=== PATIENT | male | born 1955 | race Asian ===

== ENCOUNTER 2016-11-02 11:31 | Inpatient (IN) | payer OTHER ==
[2016-11-02] VITALS (14 sets, daily range): BP systolic 138–197; BP diastolic 84–96; TEMP 97.8–98.9; Ht 167.6 cm; Wt 65.8 kg
[~2016-11-02] VITALS: Ht 167.6 cm; Wt 65.8 kg
[~2016-11-02 11:31] MED LIST: AMLO10TA PO; ARICEPT ODT10 MG PO; CALC667T2 PO; CARV25TA PO; CARV3.12 PO; CLONIDINE0.1 MG PO; CLOP75TA2 PO; DIVA250T PO; DIVA250T2 PO; FURO20TA67 PO; FURO40TA93 PO; GLYB5TAB65 PO; LEXAPRO20 MG PO; LORTAB1 TAB PO; SENSIPAR30 MG PO; VITAMIN D50000 UNT PO
[2016-11-02 17:53] LABS: PLATELET COUNT 175 K/uL (142-355)
[2016-11-02 18:13] LABS: POTASSIUM 3.5 mmol/L (3.6-5.2)
[2016-11-03] VITALS (10 sets, daily range): BP systolic 79–160; BP diastolic 64–99; TEMP 97.9–98.9
[2016-11-03 06:21] LABS: PLATELET COUNT 184 K/uL (142-355)
[2016-11-03 06:26] LABS: POTASSIUM 3.9 mmol/L (3.6-5.2)
[2016-11-04] VITALS: BP 147/88; TEMP 98.5
[2016-11-04 04:00] VITALS: BP 149/91; TEMP 98.8
[2016-11-04 05:16] LABS: PLATELET COUNT 167 K/uL (142-355)
[2016-11-04 05:25] LABS: POTASSIUM 3.6 mmol/L (3.6-5.2)
[2016-11-04 07:57] VITALS: BP 162/93; TEMP 98.6
== END 2016-11-04 13:00 | disposition home or self-care (01) | DRG 381 ==
LOC: OR 11:31 → ICU 15:02 → MED/SURG 11-03 14:45
PROVIDERS: Family Medicine; ADMIT Emergency Medicine
PROC: 0DB68ZX Excision of Stomach, Via Natural or Artificial Opening Endoscopic, Diagnostic (ICD-10-PCS; principal; 2016-11-02)
PROC: 0D758ZZ Dilation of Esophagus, Via Natural or Artificial Opening Endoscopic (ICD-10-PCS; 2016-11-02)
PROC: 5A1D00Z (ICD-10-PCS; 2016-11-03)
DX: K22.10 Ulcer of esophagus without bleeding (principal); I12.0 Hypertensive chronic kidney disease with stage 5 chronic kidney disease or end stage renal disease; N18.5 Chronic kidney disease, stage 5; I97.121 Postprocedural cardiac arrest following other surgery; K29.60 Other gastritis without bleeding; K22.2 Esophageal obstruction; K22.4 Dyskinesia of esophagus; R13.12 Dysphagia, oropharyngeal phase; E11.9 Type 2 diabetes mellitus without complications; I69.398 Other sequelae of cerebral infarction; I95.89 Other hypotension; D64.89 Other specified anemias; Y84.8 Other medical procedures as the cause of abnormal reaction of the patient, or of later complication, without mention of misadventure at the time of the procedure; Y92.238 Other place in hospital as the place of occurrence of the external cause
CPT/HCPCS: 36415; 80053; 82550; 83735; 83880; 84100; 84484; 85027; 93005; 93306; 94760; J1644; J2250; J2310; J2704; J3010; J3490

== ENCOUNTER 2016-11-12 13:49 | Outpatient (CLI) | payer OTHER | END 2016-11-12 14:50 | disposition home or self-care (01) | LOC: LABW 13:49 | DX: D64.89 Other specified anemias (principal); R94.5 Abnormal results of liver function studies | CPT/HCPCS: 80074; 80076 ==

== ENCOUNTER 2016-11-17 14:17 | Outpatient (CLI) | payer OTHER | END 2016-11-17 15:20 | disposition home or self-care (01) | LOC: LAB 14:17 | DX: R94.5 Abnormal results of liver function studies (principal) | CPT/HCPCS: 80074; 80076 ==

== ENCOUNTER 2016-12-02 08:57 | Outpatient (CLI) | payer OTHER | END 2016-12-02 19:59 | disposition home or self-care (01) | LOC: US 08:57 | DX: R94.5 Abnormal results of liver function studies (principal) ==

== ENCOUNTER 2016-12-05 13:39 | Observation (INO) | payer OTHER ==
[~2016-12-05] VITALS: Ht 165.1 cm; Wt 71.9 kg
[2016-12-05 16:02] LABS: PLATELET COUNT 138 K/uL (142-355)
[2016-12-05 16:11] LABS: POTASSIUM 3.1 mmol/L (3.6-5.2)
[2016-12-05 19:42] VITALS: BP 180/100; TEMP 98; Ht 165.1 cm; Wt 71.9 kg
[2016-12-05 20:00] VITALS: BP 146/81; BP 195/121; TEMP 97.9
[2016-12-06] VITALS: BP 166/97; TEMP 97.9
[2016-12-06] MEDS ORDERED: AMLO2.5T PO (01:29)
[2016-12-06] MEDS ORDERED: CARV3.12 PO (01:30)
[2016-12-06] MEDS ORDERED: PANTPAK PO (01:32)
[2016-12-06] MEDS ORDERED: CLON0.1T16 PO (01:32)
[2016-12-06] MEDS ORDERED: ZOFRAN ODT4 MG PO (01:34)
[2016-12-06 04:00] VITALS: BP 151/96; TEMP 97.7
[2016-12-06 06:40] LABS: PLATELET COUNT 127 K/uL (142-355)
[2016-12-06 07:07] LABS: POTASSIUM 2.9 mmol/L (3.6-5.2)
[2016-12-06 08:00] VITALS: BP 159/73; TEMP 98.1
--- NOTE | 2016-12-06 09:11 | NUR ---
IV D/C'd. NO REDNESS OR EDEMA OBSERVED. DISCHARGE INSTRUCTION SIGNED AND GIVEN. Pt. EXIT OUT OF FRONT ENTRANCE VIA W/C.
== END 2016-12-06 09:11 | disposition home or self-care (01) ==
LOC: MED/SURG 13:39
PROVIDERS: ADMIT Family Medicine
DX: I16.0 Hypertensive urgency (principal); Z91.15 Patient's noncompliance with renal dialysis; F01.50 Vascular dementia, unspecified severity, without behavioral disturbance, psychotic disturbance, mood disturbance, and anxiety; I10 Essential (primary) hypertension; W19.XXXA Unspecified fall, initial encounter; M79.604 Pain in right leg; M79.605 Pain in left leg; N18.6 End stage renal disease; Z99.2 Dependence on renal dialysis
CPT/HCPCS: 36415; 80053; 82550; 83735; 84100; 84484; 85027; 93005; 99220; G0378; G0379; J3490

== ENCOUNTER 2016-12-27 21:54 | Outpatient (CLI) | payer OTHER ==
[~2016-12-27 21:54] MED LIST changes: +AMLO2.5T PO; +CLON0.1T16 PO; +PANTPAK PO; +ZOFRAN ODT4 MG PO
== END 2016-12-27 22:15 | disposition short-term general hospital (02) ==
LOC: AMB 21:54
DX: R41.82 Altered mental status, unspecified (principal); R56.9 Unspecified convulsions
CPT/HCPCS: A0425; A0427

== ENCOUNTER 2017-01-26 10:58 | Emergency (ER) | payer OTHER ==
[~2017-01-26] VITALS: Ht 165.1 cm; Wt 72.6 kg
[2017-01-26 14:21] LABS: PLATELET COUNT 108 K/uL (142-355)
[2017-01-26 14:29] LABS: POTASSIUM 3.4 mmol/L (3.6-5.2)
[2017-01-26 16:35] VITALS: BP 162/102; TEMP 97.5
== END 2017-01-26 16:35 | disposition home or self-care (01) ==
LOC: ED 10:58
DX: S00.83XA Contusion of other part of head, initial encounter (principal); W18.39XA Other fall on same level, initial encounter; Y93.89 Activity, other specified; Y92.89 Other specified places as the place of occurrence of the external cause; Y99.8 Other external cause status; I10 Essential (primary) hypertension
CPT/HCPCS: 80053; 85027; 99283

== ENCOUNTER 2017-06-03 10:00 | Inpatient (IN) | payer OTHER ==
[~2017-06-03] VITALS: Ht 165.1 cm; Wt 55.3 kg
--- NOTE | 2017-06-03 11:00 | NUR ---
DR. REA AND BEATRICE PEREZ RN NOTIFIED OF CONSULT.
--- NOTE | 2017-06-03 11:06 | NUR ---
PT ADMITTED TO ROOM [address] MARTIN FOR PRESSURE ULCER/CELLULITIS OF PENIS. PT AND ORIENTED TO ROOM SURROUNDINGS. PT HAS PROSTHETIC L LEG. PROSTHESIS TAKEN OFF. ASSISTED PT TO BED. IV STARTED IN R WRIST WITH A 24G X [address] AND FLUSHED WITH NS. LAB AT BEDSIDE TO DRAW BLOOD.
--- NOTE | 2017-06-03 11:45 | NUR ---
PT HAS A SMALL PINPOINT PUNCTURE WOUND TO R GREAT TOE. PUS DRAINAGE SMALL AMT NOTED. WOUND CULTURE COLLECTED. IN AND OUT CATH 14F INSERTED VIA COLLECTIONS DIRECTOR TO COLLECT UA. BLADDER DRAINED AND OUTPUT 120ML. URINE XAVIER AND CLOUDY. PT NORBERT WELL.
[2017-06-03 12:01] LABS: PLATELET COUNT 315 K/uL (142-355)
[2017-06-03 12:07] VITALS: BP 147/94; TEMP 97; Ht 165.1 cm; Wt 55.3 kg
[2017-06-03 12:31] LABS: POTASSIUM 3.1 mmol/L (3.6-5.2)
[2017-06-03] MEDS ORDERED: AMLODIPINE BESYLATE PO (12:32)
[2017-06-03] MEDS ORDERED: SPRITAM250 MG PO (12:33)
[2017-06-03 16:00] VITALS: BP 130/78; TEMP 98.6
--- NOTE | 2017-06-03 16:00 | NUR ---
DR. REA IN TO SEE PT.
--- NOTE | 2017-06-03 16:30 | NUR ---
DR. AVERY CALLED TO CHECK ON PT.
--- NOTE | 2017-06-03 17:13 | NUR ---
NYSTATIN CREAM APPLIED TO PENIS AND SCROTUM ELEVATED WITH WASHCLOTHS. PT REFUSED TO BE TURNED.
[2017-06-03 20:00] VITALS: BP 146/89; TEMP 198.9
[2017-06-04] VITALS (7 sets, daily range): BP systolic 111–152; BP diastolic 30–93; TEMP 97–99.6
--- NOTE | 2017-06-04 01:10 | NUR ---
06/03/171999 BLOOD SUGAR: 102
[2017-06-04 08:29] LABS: PLATELET COUNT 280 K/uL (142-355)
[2017-06-04 08:42] LABS: POTASSIUM 3.4 mmol/L (3.6-5.2)
--- NOTE | 2017-06-04 22:42 | NUR ---
RECHECKED BP 144/85.
[2017-06-05] VITALS: BP 143/85; TEMP 98.3
--- NOTE | 2017-06-05 | NUR ---
PT HAS BEEN PLACED NPO. PT FOR SURGERY FOR DEBRIDEMENT OF PRESSURE AREA TO HIS PENIS. BP IS STABLE.
--- NOTE | 2017-06-05 00:46 | NUR ---
I WENT BY TO CHECK ON MR. OCHOA BECAUSE I NOTICED IN THE COMPUTER IT SAID HE WAS ON O2 THERAPY BUT I DIDN'T HAVE ON MY LIST OF PTS. HE WAS NOT ON ANY 02 BUT HIS SATS WAS 91% AND THEN DROPPED LOW 83% AND THEN CAME BACK UP SLOWLY TO 94% SO I PUT HIM ON 2LPM VIA NASAL CANNULA.
[2017-06-05 04:00] VITALS: BP 142/87; TEMP 98.1
[2017-06-05 05:13] LABS: PLATELET COUNT 296 K/uL (142-355)
[2017-06-05 05:34] LABS: POTASSIUM 3.3 mmol/L (3.6-5.2)
[2017-06-05 08:00] VITALS: BP 143/85; TEMP 97.5
--- NOTE | 2017-06-05 08:15 | NUR ---
Pt. TO DIALYSIS VIA BED.
--- NOTE | 2017-06-05 12:15 | NUR ---
Pt. RETURN FROM DIALYSIS. Pt. MORE ALERT. SITTING UP IN BED TALKING WANTING FOOD TO EAT. DIET ORDERED.
--- NOTE | 2017-06-05 13:47 | NUR ---
INFORMATION THAT DR. CASH REQUESTED FAXED TO [facility] FOR TRANSFER WHEN BED AVAILABLE AT [facility].
[2017-06-05 16:00] VITALS: BP 138/54; TEMP 98.6
[2017-06-05 20:00] VITALS: BP 153/84; TEMP 99.3
[2017-06-06] VITALS: BP 149/88; TEMP 99.7
[2017-06-06 04:00] VITALS: BP 134/65; TEMP 99.1
[2017-06-06 06:21] LABS: PLATELET COUNT 347 K/uL (142-355)
[2017-06-06 07:45] LABS: POTASSIUM 3.9 mmol/L (3.6-5.2)
[2017-06-06 08:07] VITALS: BP 129/80; TEMP 98.3
--- NOTE | 2017-06-06 11:15 | NUR ---
Pt. IV D/C'd. EXIT OUT OF FRONT ENTRANCE VIA W/C.
[2017-06-06 12:00] VITALS: BP 135/76; TEMP 97.5
[2017-06-06 16:00] VITALS: BP 144/85; TEMP 98.3
[2017-06-06 20:00] VITALS: BP 126/52; TEMP 98.9
[2017-06-07] VITALS: BP 143/78; TEMP 98.7
[2017-06-07 04:00] VITALS: BP 144/79; TEMP 98.6
[2017-06-07 08:00] VITALS: BP 132/98; TEMP 98.1
--- NOTE | 2017-06-07 10:30 | NUR ---
Pt. TO DIALYSIS VIA BED.
[2017-06-07 11:04] LABS: PLATELET COUNT 286 K/uL (142-355)
[2017-06-07 11:32] LABS: POTASSIUM 4.5 mmol/L (3.6-5.2)
[2017-06-07 16:00] VITALS: BP 129/34; TEMP 98.1
--- NOTE | 2017-06-07 16:25 | NUR ---
DR. REA DEBRIDE Pt. PENIS AND REMOVE TOENAIL GREAT R TOE. DRESSING INTACT. Pt. RESTING IN BED.
[2017-06-07 20:00] VITALS: BP 122/48; TEMP 97.8
[2017-06-08] VITALS: BP 115/44; TEMP 98.8
[2017-06-08 04:00] VITALS: BP 97/69; TEMP 98.8
[2017-06-08 05:26] LABS: PLATELET COUNT 269 K/uL (142-355)
[2017-06-08 05:34] LABS: POTASSIUM 3.5 mmol/L (3.6-5.2)
[2017-06-08 08:00] VITALS: BP 162/98; TEMP 99
[2017-06-08 12:00] VITALS: BP 138/90; TEMP 97.8
--- NOTE | 2017-06-08 14:50 | NUR ---
PENILE WOUND CLEANED WITH CHOLORAHEXIDINE AND VASELINE GUAZE DRESSING. FORESKIN WAS PULLED BACK UP TO NORMAL POSITIONING. PT'S WAS SHOWN HOW TO DO DRESSING CHANGE. DISCHARGE INSTRUCTIONS WERE GIVEN AT THIS TIME. PT AND VERBALIZED UNDERSTANDING.
--- NOTE | 2017-06-08 15:23 | NUR ---
PT D/C VIA WHEELCHAIR AT THIS TIME
== END 2017-06-08 16:00 | disposition home or self-care (01) | DRG 264 ==
LOC: MED/SURG 10:00
PROVIDERS: ADMIT Family Medicine
PROC: 0JBC0ZZ Excision of Pelvic Region Subcutaneous Tissue and Fascia, Open Approach (ICD-10-PCS; principal; 2017-06-07)
PROC: 0HBRXZZ Excision of Toe Nail, External Approach (ICD-10-PCS; 2017-06-07)
DX: E11.52 Type 2 diabetes mellitus with diabetic peripheral angiopathy with gangrene (principal); N18.6 End stage renal disease; I96 Gangrene, not elsewhere classified; I12.0 Hypertensive chronic kidney disease with stage 5 chronic kidney disease or end stage renal disease; L60.0 Ingrowing nail; E11.22 Type 2 diabetes mellitus with diabetic chronic kidney disease
CPT/HCPCS: 36415; 36591; 80053; 81000; 82330; 82948; 83605; 83735; 83970; 84100; 85027; 85610; 85651; 87040; 87070; 87077; 87086; 87088; 87185; 87186; 87205; 94760; 96367; J0713; J1644; J2001; J2704; J3490

== ENCOUNTER 2017-06-10 22:41 | Emergency (ER) | payer OTHER ==
[~2017-06-10] VITALS: Ht 167.6 cm; Wt 54.4 kg
[~2017-06-10 22:41] MED LIST changes: +AMLODIPINE BESYLATE PO; +SPRITAM250 MG PO
[2017-06-11 00:05] LABS: PLATELET COUNT 231 K/uL (142-355)
[2017-06-11 00:18] LABS: POTASSIUM 4.2 mmol/L (3.6-5.2)
[2017-06-11 01:00] VITALS: BP 140/80; TEMP 98.5
== END 2017-06-11 01:04 | disposition home or self-care (01) ==
LOC: ED 22:41
DX: L08.89 Other specified local infections of the skin and subcutaneous tissue (principal); N18.9 Chronic kidney disease, unspecified; E11.9 Type 2 diabetes mellitus without complications; I73.9 Peripheral vascular disease, unspecified; Z98.890 Other specified postprocedural states
CPT/HCPCS: 36415; 80053; 85027; 99283

== ENCOUNTER 2017-07-12 13:49 | Outpatient (CLI) | payer OTHER | END 2017-07-12 18:22 | disposition home or self-care (01) | LOC: LAB 13:49 | DX: D64.89 Other specified anemias (principal) | CPT/HCPCS: 85018 ==

== ENCOUNTER 2017-10-09 11:17 | Outpatient (CLI) | payer OTHER | END 2017-10-09 22:39 | disposition home or self-care (01) | LOC: MRI 11:17 | DX: I96 Gangrene, not elsewhere classified (principal) ==

== ENCOUNTER 2017-11-29 20:19 | Emergency (ER) | payer OTHER ==
[~2017-11-29] VITALS: Ht 177.8 cm; Wt 49.0 kg
[2017-11-29 20:59] LABS: PLATELET COUNT 209 K/uL (142-355)
[2017-11-29 21:53] VITALS: BP 175/80; TEMP 98
== END 2017-11-29 22:32 | disposition home or self-care (01) ==
LOC: ED 20:19
PROVIDERS: Emergency Medicine
DX: K59.09 Other constipation (principal); R10.13 Epigastric pain; I12.0 Hypertensive chronic kidney disease with stage 5 chronic kidney disease or end stage renal disease; N18.6 End stage renal disease; R11.2 Nausea with vomiting, unspecified
CPT/HCPCS: 36415; 80053; 82150; 83690; 85027; 99283

== ENCOUNTER 2017-12-07 21:23 | Outpatient (CLI) | payer OTHER | END 2017-12-07 21:36 | disposition short-term general hospital (02) | LOC: AMB 21:23 | DX: R06.09 Other forms of dyspnea (principal) | CPT/HCPCS: A0425; A0427 ==

== ENCOUNTER 2017-12-07 21:49 | Emergency (ER) | payer OTHER ==
[~2017-12-07] VITALS: Ht 177.8 cm; Wt 49.0 kg
[2017-12-07 22:34] LABS: PLATELET COUNT 241 K/uL (142-355)
[2017-12-07 22:35] LABS: POTASSIUM 3.9 mmol/L (3.6-5.2)
[2017-12-08 04:18] VITALS: BP 164/75; TEMP 97.7
== END 2017-12-08 04:18 | disposition short-term general hospital (02) ==
LOC: ED 21:49
PROVIDERS: Internal Medicine
DX: J18.9 Pneumonia, unspecified organism (principal); J91.8 Pleural effusion in other conditions classified elsewhere; R06.02 Shortness of breath; R68.89 Other general symptoms and signs
CPT/HCPCS: 36600; 80053; 82550; 82805; 84484; 85027; 93005; 99284

== ENCOUNTER 2017-12-11 20:30 | Inpatient (IN) | payer OTHER ==
[~2017-12-11] VITALS: Ht 162.6 cm; Wt 44.2 kg
[2017-12-12 03:05] VITALS: BP 97/12; TEMP 98.8; Ht 162.6 cm; Wt 44.2 kg
[2017-12-12 11:04] VITALS: BP 77/37; TEMP 97.9
[2017-12-12 20:00] VITALS: BP 157/62; TEMP 98.1
--- NOTE | 2017-12-13 10:00 | NUR ---
CALLED INTO PTS ROOM BY FAMILY MEMBER. PT APPEARS TO BE IN PAIN (MOANING). MORPHINE SULFATE GIVEN ORDERED.
--- NOTE | 2017-12-13 13:00 | NUR ---
HOSPICE HORSE STUD MANAGER (KAYLI) HERE AT THIS TIME TO BATHE PT. PT TOLERATED WELL. VITAL SIGNS WNL. FAMILY AT BS.
--- NOTE | 2017-12-13 14:45 | NUR ---
CALLED INTO ROOM BY PTS FAMILY. UNABLE TO GET O2 OR B/P AT THIS TIME. NO BREATHE SOUNDS AUSCULTATED, NO RESPIRATTIONS NOTED. . NO HEART RATE AUSCULTATED OR PALPATED AT CAROTID OR FEMORAL ARTERY. DR SKELTON CALLED INTO ROOM AT THIS TIME. PRONOUNCES AT 1500.
--- NOTE | 2017-12-13 15:05 | NUR ---
[facility] CALLED AT THIS TIME. SPOKE WITH ALAINA AND REFERENCE NUMBER GIVEN. HOSPICE NOTIFIED AT THIS TIME.
--- NOTE | 2017-12-13 16:55 | NUR ---
HOME TAKING PT VIA STETCHER AT THIS TIME.
== END 2017-12-13 15:00 | disposition expired | DRG 682 ==
LOC: MED/SURG 20:30
DX: N18.6 End stage renal disease (principal); I50.23 Acute on chronic systolic (congestive) heart failure; I46.9 Cardiac arrest, cause unspecified; I51.7 Cardiomegaly; F03.90 Unspecified dementia, unspecified severity, without behavioral disturbance, psychotic disturbance, mood disturbance, and anxiety